=== PATIENT | female | born 1975 | race Caucasian/White ===

== ENCOUNTER → 2018-05-22 | Outpatient (CLI) | payer BC | END | disposition home or self-care (01) | LOC: CFH 14:41 | PROVIDERS: ATTEND Emergency Medicine Emergency Medical Services | DX: N63.23 Unspecified lump in the left breast, lower outer quadrant (principal) | CPT/HCPCS: 77065 ==

== ENCOUNTER → 2018-05-23 | Outpatient (CLI) | payer BC ==
[~2018-05-23] MED LIST: LIDOCAINE 1%, 20ML ONE; LIDOCAINE 1%-EPI 1:100K, 20ML ONE; SODIUM BICARBONATE 4.0%, 5ML ONE
== END | disposition home or self-care (01) ==
LOC: CFH 15:12
PROVIDERS: ATTEND Emergency Medicine Emergency Medical Services
DX: N61.0 Mastitis without abscess (principal); D24.2 Benign neoplasm of left breast; N60.02 Solitary cyst of left breast
CPT/HCPCS: 19083; 88305; J3490

== ENCOUNTER → 2019-11-05 | Outpatient (CLI) | payer BC, OTHER | END | disposition home or self-care (01) | LOC: CFH 12:06 | PROVIDERS: ATTEND Emergency Medicine Emergency Medical Services | DX: Z12.31 Encounter for screening mammogram for malignant neoplasm of breast (principal); N60.02 Solitary cyst of left breast; N60.01 Solitary cyst of right breast; N64.89 Other specified disorders of breast | CPT/HCPCS: 76641; 77063; 77067 ==